=== PATIENT | male | born 1990 | race Two or more races ===

== ENCOUNTER 2019-09-08 11:34 | Outpatient (CLI) | payer OTHER | END 2019-09-12 09:26 | disposition home or self-care (01) | LOC: SONOGRAMA 11:34 | DX: N20.0 Calculus of kidney (principal); M54.5 Low back pain; R31.29 Other microscopic hematuria ==

== ENCOUNTER 2019-09-08 13:44 | Outpatient (CLI) | payer OTHER | END 2019-09-08 13:50 | disposition home or self-care (01) | LOC: LAB 13:44 | DX: M54.5 Low back pain (principal); N20.0 Calculus of kidney; Z12.5 Encounter for screening for malignant neoplasm of prostate; R31.29 Other microscopic hematuria; E78.00 Pure hypercholesterolemia, unspecified; E03.8 Other specified hypothyroidism ==

== ENCOUNTER → 2019-09-27 | Outpatient (CLI) | payer OTHER | END | disposition home or self-care (01) | LOC: TOM 07:45 | DX: N20.0 Calculus of kidney (principal); R31.29 Other microscopic hematuria ==